=== PATIENT | female | born 1970 | race Caucasian/White ===

== ENCOUNTER → 2020-09-02 10:21 | Outpatient (CLI) | payer OTHER, SELFPAY ==
--- NOTE | ~2020-09-02 | MM_ITS ---
EXAMINATION: MM screening miranda BI w dee HISTORY: Screening TECHNIQUE: Craniocaudal and mediolateral oblique 3-D tomosynthesis images were obtained and synthetic 2-D images were generated. CAD analysis was submitted and interpreted. COMPARISON: Comparison to multiple prior studies sequentially, with oldest reviewed study dated 01/11. BREAST PARENCHYMAL COMPOSITION: There are scattered areas of fibroglandular density. FINDINGS: There is no evidence of suspicious mass, calcification, or architectural distortion to sugg est malignancy in either breast. There has been no suspicious interval change. IMPRESSION: 1. No mammographic evidence of malignancy. 2. Recommend routine screening mammography in one year. BI-RADS Category 1: Negative Reviewed, dictated and finalized at location A.
== END ==
PROVIDERS: PCP Family Medicine; Visit Provider Obstetrics & Gynecology Gynecology
DX: Z12.31 Encounter for screening mammogram for malignant neoplasm of breast (principal)
CPT/HCPCS: 77063; 77067

== ENCOUNTER → 2020-09-06 10:02 | Outpatient (CLI) | payer OTHER, SELFPAY ==
--- NOTE | ~2020-09-06 | US_ITS ---
US abdomen complete EXAMINATION: US Abdomen Complete INDICATION: Right upper quadrant pain PROCEDURE: Realtime High Resolution abdomen ultrasound. COMPARISON: No prior studies for comparison FINDINGS: Gallbladder is surgically absent. Common bile duct measures 3.6 mm. Liver echotexture within normal limits without focal mass. Pancreas within normal limits. Pancreati c tail is obscured by bowel gas. Spleen is unremarkeable. Renal echotexture is within normal limits bilaterally without hydronephrosis, contour deforming mass or renal stone. Right kidney measures 9 cm . Left kidney measures 11.4 cm. Visualized aspects of the IVC are within normal limits. Abdominal aorta not visualized due to bowel g as. Portal vein is patent. No sonographic Medina's sign indicated by the technologist. IMPRESSION: 1: Unremarkable abdominal ultrasound. Reviewed, dictated and finalized at location A.
== END ==
PROVIDERS: PCP Family Medicine; Visit Provider Physician Assistant
DX: R10.9 Unspecified abdominal pain (principal)
CPT/HCPCS: 76700

== ENCOUNTER 2021-03-27 01:45 | Day surgery (SDC) | payer OTHER, SELFPAY ==
[2021-03-10 14:14] VITALS: BMI 40.4
[2021-03-27 08:16] VITALS: BP 121/67; PULSE 79; RESP 18; TEMP 36.1; O2SAT 98
--- NOTE | 2021-03-27 08:40 | P.PNAN_ITS ---
Anes - Initial Pre Proc Eval Procedure: Operation Date: 03/27/21 09:00 Proposed Procedures p Screening Colonoscopy - Stevie Chandra MD Date/Time: 03/27/21 08:40 Surgeon: Stevie Chandra MD Pre Op Diagnosis: neoplasm screening Patient Data Age: 50 Gender: F Height: 1.68 m Weight: 112.9 kg Last Vital Signs Temp 36.1 C L 03/27/21 08:16 Pulse 79 03/27/21 08:16 Resp 18 03/27/21 08:16 BP 121/67 03/27/21 08:16 Pulse Ox 98 03/27/21 08:16 Allergies Allergy/AdvReac Type Severity Reaction Status Date / Time No Known Allergies Allergy Mild Verified 03/27/21 08:14 Home Medications Medication Instructions Recorded Confirmed Type nifedipine 60 mg tablet,extended 60 mg PO DAILY #90 tablet 01/13/21 03/10/21 Rx release 24 hr spironolactone 50 mg tablet See Rx Instructions .ROUTE 01/31/21 03/10/21 Rx .COMPLEX #90 tablet esomeprazole magnesium 40 mg 40 mg PO DAILY #90 cap 02/02/21 03/10/21 Rx capsule,delayed release ergocalciferol (vitamin D2) 50,000 unit PO WEEKLY 03/10/21 03/10/21 History medroxyprogesterone 150 mg IM MONTHLY 03/10/21 03/10/21 History Patient hx anesthesia problems: post op nausea/vomiting Family hx anesthesia problems: none Results Review: All pre-operative results and documents have been reviewed as part of the pre-operative evaluation. [facility]LY [facility] Past Medical History Medical History GERD (gastroesophageal reflux disease) Hyperlipidemia Hypertension Surgical History Surgical History History of cholecystectomy Social History Social History Smoking packs per day: 1 Smoking cigarettes per day: 20.0 Years smoked: 8 Smoking pack-years: 8.00 Smoking status: Never smoker Tobacco type: cigarettes Second hand tobacco smoke exposure: Yes Smoking end date: 06/17/98 Alcohol intake: current Drinks per week: 6 Substance use: never Substance use type: does not use Living arrangements: with family Gender identity (if verbalized by the patient): Female Spiritual care concerns: No Anes - Eval Final PreProcedure Day of Procedure 03/27/21 08:40 Patient weight: morbidly obese Heart: regular rate and rhythm Lungs: clear to auscultation Airway: Mallampati scale class II Neurological: alert and oriented Last oral intake: >/= 8 hours ASA classification: III Emergent: no Anesthetic plan: proceed Anesthesia type and monitoring: general GIVS and standard monitoring Results Review: All pre-operative results and documents have been reviewed as part of the pre-operative evaluation. Informed Consent: The patient's anesthetic plan and its attendant risks and benefits were discussed with the patient/family/POA. Questions were solicited and answers provided to the satisfaction of the patient/family/POA.
[2021-03-27] MEDS: LACTATED RINGERS 1,000 ML 150 ML IV CONT (08:41)
--- NOTE | 2021-03-27 08:47 | P.CONGI_ITS ---
Assessment and Plan Assessment and plan (1) Encounter for screening colonoscopy: Code(s): Z12.11 - Encounter for screening for malignant neoplasm of colon Status: Acute Assessment and Plan: Patient presents for screening colonoscopy. Appears be at average risk for colon polyps. Further recommendations will be given after a colonoscopy. GI Consult Note Consult date/time: 03/27/21 08:47 HPI: [place] is a 50 year old female Presents for screening colonoscopy. Patient's current weight appetite bowel movements are normal. She denies abdominal pain. She has had no bleeding. Family history is noncontributory. She presents today for screening colonoscopy. Review of Systems Review of Systems: All systems reviewed & are unremarkable except as noted in HPI and below PMFSH Past Medical History Medical History GERD (gastroesophageal reflux disease) Hyperlipidemia Hypertension Surgical History Surgical History History of cholecystectomy Social History Social History Smoking packs per day: 1 Smoking cigarettes per day: 20.0 Years smoked: 8 Smoking pack-years: 8.00 Smoking status: Never smoker Tobacco type: cigarettes Second hand tobacco smoke exposure: Yes Smoking end date: 06/17/98 Alcohol intake: current Drinks per week: 6 Substance use: never Substance use type: does not use Living arrangements: with family Gender identity (if verbalized by the patient): Female Spiritual care concerns: No Meds Home Medications and Allergies Home Medications Medication Instructions Recorded Confirmed Type nifedipine 60 mg tablet,extended 60 mg PO DAILY #90 tablet 01/13/21 03/10/21 Rx release 24 hr spironolactone 50 mg tablet See Rx Instructions .ROUTE 01/31/21 03/10/21 Rx .COMPLEX #90 tablet esomeprazole magnesium 40 mg 40 mg PO DAILY #90 cap 02/02/21 03/10/21 Rx capsule,delayed release ergocalciferol (vitamin D2) 50,000 unit PO WEEKLY 03/10/21 03/10/21 History medroxyprogesterone 150 mg IM MONTHLY 03/10/21 03/10/21 History Allergies Allergy/AdvReac Type Severity Reaction Status Date / Time No Known Allergies Allergy Mild Verified 03/27/21 08:14 Vital Signs Vital Signs - 24 hr 03/27/21 08:16 Temperature 96.9 F L Pulse Rate 79 Respiratory Rate 18 Blood Pressure 121/67 Pulse Oximetry 98 Exam Narrative: Physical exam reveals patient to be alert. Vital signs stable. HEENT exam is unremarkable. Patient is anicteric. Lungs are clear to au scultation and percussion. Heart is without murmur or extra sounds. Abdominal exam bowel sounds are present soft nontender with no organomegaly. Digital external rectal exam is normal.
[2021-03-27 09:09] VITALS: BP 121/83; PULSE 78; RESP 23; O2SAT 100
[2021-03-27 09:19] VITALS: BP 122/79; PULSE 77; RESP 20; O2SAT 100
[2021-03-27 09:29] VITALS: BP 116/78; PULSE 67; RESP 17; O2SAT 100
== END 2021-03-27 09:39 | disposition home or self-care (01) ==
PROVIDERS: PCP Family Medicine; Visit Provider Internal Medicine Gastroenterology
PROC: 0DJD8ZZ Inspection of Lower Intestinal Tract, Via Natural or Artificial Opening Endoscopic (ICD-10-PCS; CPT 45378; principal; 2021-03-27 09:00)
DX: Z12.11 Encounter for screening for malignant neoplasm of colon (principal); K64.8 Other hemorrhoids; K57.30 Diverticulosis of large intestine without perforation or abscess without bleeding; K63.5 Polyp of colon; K21.9 Gastro-esophageal reflux disease without esophagitis; I10 Essential (primary) hypertension; E78.5 Hyperlipidemia, unspecified; Z87.891 Personal history of nicotine dependence; E66.01 Morbid (severe) obesity due to excess calories; Z68.41 Body mass index [BMI] 40.0-44.9, adult
CPT/HCPCS: 45385; 88305; J2704; J7120

== ENCOUNTER → 2021-05-31 13:30 | Outpatient (CLI) | payer OTHER, SELFPAY ==
--- NOTE | ~2021-05-31 | CT_ITS ---
EXAMINATION: CT abdomen pelvis w con DATE: 05/31/2021 14:05 INDICATION: Upper quadrant pain. History of cholecystectomy. TECHNIQUE: Computed tomography (CT) of the abdomen and pelvis was performed with 100 cc Omnipaque 350 intravenous contrast. The dose-length product was 1062.50 mGy-cm. Automated exposure control and ite rative reconstruction technique were employed. COMPARISON: None. FINDINGS: Lung bases are unremarkable. Size is normal. No significant pleural or pericardial effusion . Small fat-containing umbilical hernia. Status post cholecystectomy. No significant vascular abnorma lity. Retroaortic left renal vein. No lymphadenopathy. The liver, spleen, pancreas, adrenal glands and kidneys are unremarkable. Nonobstructive bowel gas pa ttern. No free air or free fluid. Bowel pattern is nonobstructive. Moderate spondylosis at L5-S1. No acute bone or joint abnormality. IMPRESSION: 1. No acute abdominal abnormality. Reviewed, dictated and finalized at location A. [employer]
[2021-05-31 13:52] LABS: Estimated Glomerular Filt Rate > 60
== END ==
PROVIDERS: PCP Family Medicine; Visit Provider Physician Assistant
DX: R10.9 Unspecified abdominal pain (principal)
CPT/HCPCS: 74177; Q9967

== ENCOUNTER → 2021-10-27 09:58 | Outpatient (CLI) | payer OTHER, SELFPAY ==
--- NOTE | ~2021-10-27 | MM_ITS ---
EXAMINATION: MM screening miranda BI w dee HISTORY: Screening TECHNIQUE: Craniocaudal and mediolateral oblique 3-D tomosynthesis images were obtained and synthetic 2-D images were generated. CAD analysis was submitted and interpreted. COMPARISON: Comparison to multiple prior studies sequentially, with oldest reviewed study dated 08/2014. BREAST PARENCHYMAL COMPOSITION: The breasts are almost entirely fatty. FINDINGS: There is no evidence of suspicious mass, calcification, or architectural distortion to sugg est malignancy in either breast. There has been no suspicious interval change. IMPRESSION: 1. No mammographic evidence of malignancy. 2. Recommend routine screening mammography in one year. BI-RADS Category 1: Negative Reviewed, dictated and finalized at location A.
== END ==
PROVIDERS: PCP Family Medicine; Visit Provider Obstetrics & Gynecology Gynecology
DX: Z12.31 Encounter for screening mammogram for malignant neoplasm of breast (principal)
CPT/HCPCS: 77063; 77067

== ENCOUNTER 2022-11-11 09:13 | Emergency (ER) | payer OTHER, SELFPAY ==
[2022-11-11 09:24] VITALS: BP 107/83; PULSE 75; RESP 16; TEMP 36.3; O2SAT 100
--- NOTE | 2022-11-11 09:49 | ED.EAR ---
HPI - Ear Problem General Chief complaint: Ear Stated complaint: rt ear discomfort Time Seen by Provider: 11/11/22 09:49 Source: patient, RN notes reviewed and old records reviewed Mode of arrival: ambulatory Limitations: no limitations History of Present Illness HPI Narrative: 52 year old female who presents to [facility] care with complaints of bilateral ear pressure sensation with sensitivity to sound, sinus congestion and drainage, and cough that has been going on for 2 weeks. Patient reports that she has taken Sudafed and Claritin for her symptoms without resolution. Patient reports that she has sinus pressure with increased sinus congestion and drainage, and also frontal headache.Patient reports that she has not had any known fevers, chills or sweats or any body aches. MD Complaint: ear pain Location: bilateral Discharge from ear: Reports no Associated symptoms ear: other (pressure, sensitivity to sound) Treatment prior to arrival: other (Sudafed, Claritin) Related Data Home Medications Medication Instructions Recorded Confirmed ergocalciferol (vitamin D2) 1,250 50,000 unit PO WEEKLY 03/10/21 11/11/22 mcg (50,000 unit) capsule medroxyprogesterone 150 mg/mL 150 mg IM MONTHLY 03/10/21 11/11/22 intramuscular syringe mecobalamin (vitamin B12) 5,000 5,000 mcg PO DAILY 05/18/21 11/11/22 mcg lozenge Ca 600 mg-D3 20 mcg-mag oxide 50 1 tablet PO DAILY 05/24/22 11/11/22 zk-Ek-wvbqpi-manganese-boron tablet (Calcium 600-D3 Plus (mag-zinc)) Saccharomyces boulardii 250 mg 250 mg PO BID 05/24/22 11/11/22 capsule (Daily Probiotic (S. boulardii)) ascorbate calcium (vitamin C) 500 500 mg PO DAILY 05/24/22 11/11/22 mg tablet Allergies Allergy/AdvReac Type Severity Reaction Status Date / Time No Known Allergies Allergy Mild Verified 11/11/22 09:21 Review of Systems Review of Systems: CONSTITUTIONAL: Denies malaise, chills, sweats, or fever. EYES: Denies visual changes, redness, or discharge. ENT: Reports rhinorrhea, congestion, sinus pain, bilateral otalgia, sore throat. CARDIOVASCULAR: Denies chest pain, palpitations, or edema. RESPIRATORY: Reports cough.? Denies dyspnea. GASTROINTESTINAL: Denies abdominal pain, nausea, vomiting, diarrhea SKIN: Denies rash or itching. MUSCULOSKELETAL: Denies myalgia. NEUROLOGIC: Reports headache. All systems reviewed & are unremarkable except as noted in HPI and below PMFSH Past Medical History Medical History (Updated 11/11/22 @ 10:08 by Elis Lee NP) Encounter for screening colonoscopy (~03/2021) March, GERD (gastroesophageal reflux disease) Hyperlipidemia Hypertension Surgical History Surgical History History of cholecystectomy Social History Social History (Updated 05/24/22 @ 14:11 by Edel Duran PA-C) Smoking packs per day: 1 Smoking cigarettes per day: 20.0 Years smoked: 8 Smoking pack-years: 8.00 Smoking status: Former smoker Tobacco type: cigarettes Second hand tobacco smoke exposure: Yes Smoking end date: 06/17/98 Alcohol intake: current Drinks per week: 6 Substance use: never Substance use type: does not use Lack of Transportation: No Lack of Food: Never True Current Housing: I Have Housing Concerned About Future Housing: No Difficulty Paying Gas/Electric Bills: No Difficulty Paying for Meds: No Currently Unemployed: No Education: Bachelor's Degree Difficulty w/ Childcare or Family Care: No Living arrangements: with family Occupation/Education: occupation Gender identity (if verbalized by the patient): Female Spiritual care concerns: No Comments At time of signature, agree with nursing past medical, surgical, social and family history. There is no relevant family history pertinent to the presenting complaint Exam Narrative: GENERAL: Well-appearing, well-nourished, and in no acute distr
== END 2022-11-11 10:15 | disposition home or self-care (01) ==
PROVIDERS: Emergency Provider Registered Nurse; PCP Family Medicine
DX: J01.40 Acute pansinusitis, unspecified (principal); Z87.891 Personal history of nicotine dependence; K21.9 Gastro-esophageal reflux disease without esophagitis; E78.5 Hyperlipidemia, unspecified; I10 Essential (primary) hypertension
CPT/HCPCS: 87880; 99213; G0463

== ENCOUNTER → 2023-01-14 11:22 | Outpatient (CLI) | payer OTHER, SELFPAY ==
--- NOTE | ~2023-01-14 | MM_ITS ---
EXAMINATION: MM screening miranda BI w dee HISTORY: Screening mammogram TECHNIQUE: Craniocaudal and mediolateral oblique 3-D tomosynthesis images were obtained and synthetic 2-D images were generated. CAD analysis was submitted and interpreted. COMPARISON: 10/27/2021, 09/02/2020, 07/13/2019 bilateral screening mammogram examinations BREAST PARENCHYMAL COMPOSITION: The breasts are almost entirely fatty. FINDINGS: There is no evidence of suspicious mass, calcification, or architectural distortion to sugg est malignancy in either breast. There has been no suspicious interval change. IMPRESSION: 1. No mammographic evidence of malignancy. 2. Recommend routine screening mammography in one year. BI-RADS Category 1: Negative Reviewed, dictated and finalized at location A.
== END ==
PROVIDERS: PCP Family Medicine; Visit Provider Obstetrics & Gynecology Gynecology
DX: Z12.31 Encounter for screening mammogram for malignant neoplasm of breast (principal)
CPT/HCPCS: 77063; 77067

== ENCOUNTER 2023-09-20 08:09 | Emergency (ER) | payer OTHER, SELFPAY ==
--- NOTE | 2023-09-20 08:16 | ED.EYEPROB ---
HPI - Eye Problem General Chief complaint: Eye Problems Stated complaint: [facility] Time Seen by Provider: 09/20/23 08:16 Source: patient, RN notes reviewed and old records reviewed Mode of arrival: ambulatory Limitations: no limitations History of Present Illness HPI Narrative: 52-year-old female to [facility] for complaint of right eye irritation, swelling and redness for 2 days and left eye irritation that began yesterday. Patient endorses popping sound to right ear that began yesterday. Patient denies fevers, headache, visual changes, sore throat. Related Data Home Medications Medication Instructions Recorded Confirmed ergocalciferol (vitamin D2) 1,250 50,000 unit PO WEEKLY 03/10/21 09/20/23 mcg (50,000 unit) capsule medroxyprogesterone 150 mg/mL 150 mg IM MONTHLY 03/10/21 09/20/23 intramuscular syringe mecobalamin (vitamin B12) 5,000 5,000 mcg PO DAILY 05/18/21 09/20/23 mcg lozenge Ca 600 mg-D3 20 mcg-mag oxide 50 1 tablet PO DAILY 05/24/22 09/20/23 ke-Kq-hmwnll-manganese-boron tablet (Calcium 600-D3 Plus (mag-zinc)) Saccharomyces boulardii 250 mg 250 mg PO BID 05/24/22 09/20/23 capsule (Daily Probiotic (S. boulardii)) ascorbate calcium (vitamin C) 500 500 mg PO DAILY 05/24/22 09/20/23 mg tablet esomeprazole magnesium 20 mg 20 mg PO DAILY 09/20/23 09/20/23 capsule,delayed release (Nexium) Allergies Allergy/AdvReac Type Severity Reaction Status Date / Time No Known Allergies Allergy Mild Verified 09/20/23 08:16 Review of Systems Review of Systems: All systems reviewed & are unremarkable except as noted in HPI and below Constitutional: Constitutional: Reports no additional constitutional complaints Eyes: Eyes: Reports as per HPI, Denies blurry vision, Denies change in vision, Reports eye discharge, Reports irritation, Denies loss of vision and Denies other visual disturbances ENT: Reports as per HPI and Reports otalgia (right) Cardiovascular: Cardiovascular: Reports no additional cardiovascular complaints, Denies chest pain and Denies dyspnea Respiratory: Respiratory: Reports no additional respiratory complaints, Denies cough and Denies dyspnea Musculoskeletal: Musculoskeletal: Reports no additional musculoskeletal complaints Neurologic: Reports system reviewed and no additional complaints, except as documented Psychiatric: Psychiatric: Reports no additional psychiatric complaints [facility] Past Medical History Medical History Encounter for screening colonoscopy (~03/2021) March, GERD (gastroesophageal reflux disease) Hyperlipidemia Hypertension Surgical History Surgical History History of cholecystectomy Social History Social History Smoking packs per day: 1 Smoking cigarettes per day: 20.0 Years smoked: 8 Smoking pack-years: 8.00 Smoking status: Former smoker Tobacco type: cigarettes Second hand tobacco smoke exposure: Yes Smoking end date: 06/17/98 Alcohol intake: current Drinks per week: 6 Substance use: never Substance use type: does not use Lack of Transportation: No Lack of Food: Never True Current Housing: I Have Housing Concerned About Future Housing: No Difficulty Paying Gas/Electric Bills: No Difficulty Paying for Meds: No Currently Unemployed: No Education: Bachelor's Degree Difficulty w/ Childcare or Family Care: No Living arrangements: with family Occupation/Education: occupation Gender identity (if verbalized by the patient): Female Spiritual care concerns: No Comments At the time of my signature, I reviewed and agree with the nursing past medical, surgical, social, and family history. There is no relevant family history pertinent to the patient complaint. Exam Const: General: cooperative, healthy ap
[2023-09-20 08:20] VITALS: BP 130/87; PULSE 88; RESP 16; TEMP 36.6; O2SAT 100
== END 2023-09-20 08:35 | disposition home or self-care (01) ==
PROVIDERS: Emergency Provider Nurse Practitioner Family; PCP Family Medicine
DX: H10.33 Unspecified acute conjunctivitis, bilateral (principal); Z87.891 Personal history of nicotine dependence; K21.9 Gastro-esophageal reflux disease without esophagitis; E78.5 Hyperlipidemia, unspecified; I10 Essential (primary) hypertension
CPT/HCPCS: 99213; G0463

== ENCOUNTER 2023-12-23 10:06 | Emergency (ER) | payer OTHER, SELFPAY ==
--- NOTE | 2023-12-23 10:11 | ED.URI ---
HPI - URI/Sore Throat General Chief Complaint: Upper Respiratory Infection Stated Complaint: Sore Throat/Ear Pain/Headache Time Seen by Provider: 12/23/23 10:22 Source: patient and RN notes reviewed Mode of arrival: ambulatory Limitations: no limitations History of Present Illness HPI Narrative: 53-year-old female presents with concern for sore throat, ears clogged, head congestion, headache. She denies fever, body aches, chills, sweats. She has tried a couple [id number]-skxqsjp medications without relief. She reports seeing a white spot on her tonsil. MD elicited complaint: sore throat Related Data Home Medications Medication Instructions Recorded Confirmed ergocalciferol (vitamin D2) 1,250 50,000 unit PO WEEKLY 03/10/21 12/23/23 mcg (50,000 unit) capsule medroxyprogesterone 150 mg/mL 150 mg IM MONTHLY 03/10/21 12/23/23 intramuscular syringe mecobalamin (vitamin B12) 5,000 5,000 mcg PO DAILY 05/18/21 12/23/23 mcg lozenge Ca 600 mg-D3 20 mcg-mag oxide 50 1 tablet PO DAILY 05/24/22 12/23/23 sc-Bf-zoozpc-manganese-boron tablet (Calcium 600-D3 Plus (mag-zinc)) Saccharomyces boulardii 250 mg 250 mg PO BID 05/24/22 12/23/23 capsule (Daily Probiotic (S. boulardii)) ascorbate calcium (vitamin C) 500 500 mg PO DAILY 05/24/22 12/23/23 mg tablet psyllium husk 0.4 gram capsule 0.4 g PO DAILY 12/23/23 12/23/23 (Metamucil) Allergies Allergy/AdvReac Type Severity Reaction Status Date / Time No Known Allergies Allergy Mild Verified 12/23/23 10:11 Review of Systems Review of Systems: CONSTITUTIONAL: Denies malaise, chills, sweats, or fever. EYES: Denies visual changes, redness, or discharge. ENT: Reports rhinorrhea, congestion, otalgia and sore throat. CARDIOVASCULAR: Denies chest pain, palpitations, or edema. RESPIRATORY: Denies cough. Denies dyspnea. GASTROINTESTINAL: Denies abdominal pain, nausea, vomiting, diarrhea SKIN: Denies rash or itching. MUSCULOSKELETAL: Denies myalgia. NEUROLOGIC: Reports headache. All systems reviewed & are unremarkable except as noted in HPI and below PMFSH Past Medical History Medical History Encounter for screening colonoscopy (~03/2021) March, GERD (gastroesophageal reflux disease) Hyperlipidemia Hypertension Surgical History Surgical History History of cholecystectomy Social History Social History Smoking packs per day: 1 Smoking cigarettes per day: 20.0 Years smoked: 8 Smoking pack-years: 8.00 Smoking status: Former smoker Tobacco type: cigarettes Second hand tobacco smoke exposure: Yes Smoking end date: 06/17/98 Alcohol intake: current Drinks per week: 6 Substance use: never Substance use type: does not use Lack of Transportation: No Lack of Food: Never True Current Housing: I Have Housing Concerned About Future Housing: No Difficulty Paying Gas/Electric Bills: No Difficulty Paying for Meds: No Currently Unemployed: No Education: Bachelor's Degree Difficulty w/ Childcare or Family Care: No Living arrangements: with family Occupation/Education: occupation Gender identity (if verbalized by the patient): Female Spiritual care concerns: No Comments At time of signature, agree with nursing past medical, surgical, social and family history. There is no relevant family history pertinent to the presenting complaint Exam Narrative: GENERAL: Well-appearing, well-nourished, and in no acute distress. HEAD: Normocephalic EYES: PERRLA, conjunctivae clear ENT: Nares clear. Mucous membranes moist. TM pearly olguin with dull light reflex bilaterally; no tragal tenderness. Oropharynx not erythematous without lesions. Left tonsils enlarged and without exudate, no drooling, no hoarseness, no trismus, uvula midline. NECK:
[2023-12-23 10:17] VITALS: BP 127/85; PULSE 93; RESP 15; TEMP 36.6; O2SAT 99
[2023-12-23 10:27] LABS: EDSTREPNEGPOS1 Presumptive Negative
== END 2023-12-23 10:38 | disposition home or self-care (01) ==
PROVIDERS: Emergency Provider Nurse Practitioner; PCP Family Medicine
DX: J02.9 Acute pharyngitis, unspecified (principal); Z87.891 Personal history of nicotine dependence; K21.9 Gastro-esophageal reflux disease without esophagitis; E78.5 Hyperlipidemia, unspecified; I10 Essential (primary) hypertension
CPT/HCPCS: 87081; 87880; 99213; G0463

== ENCOUNTER 2024-02-21 10:23 | Outpatient (CLI) | payer OTHER, SELFPAY ==
--- NOTE | ~2024-02-21 | MM_ITS ---
EXAMINATION: MM screening miranda BI w dee HISTORY: Screening TECHNIQUE: Craniocaudal and mediolateral oblique 3-D tomosynthesis images were obtained and synthetic 2-D images were generated. CAD analysis was submitted and interpreted. COMPARISON: Comparison to multiple prior studies sequentially, with oldest reviewed study dated 06/2016. BREAST PARENCHYMAL COMPOSITION: Not Dense. The breasts are almost entirely fatty. FINDINGS: There is no evidence of suspicious mass, calcification, or architectural distortion to sugg est malignancy in either breast. There has been no suspicious interval change. IMPRESSION: 1. No mammographic evidence of malignancy. 2. Recommend routine screening mammography in one year. BI-RADS Category 1: Negative Reviewed, dictated and finalized at location B.
== END 2024-02-21 10:24 | disposition home or self-care (01) ==
LOC: MICIMG 10:24
PROVIDERS: PCP Family Medicine; Visit Provider Obstetrics & Gynecology Gynecology
DX: Z12.31 Encounter for screening mammogram for malignant neoplasm of breast (principal)
CPT/HCPCS: 77063; 77067

== ENCOUNTER 2025-02-23 10:38 | Outpatient (CLI) | payer OTHER, SELFPAY ==
--- NOTE | ~2025-02-23 | MM_ITS ---
EXAMINATION: MM screening miranda BI w dee HISTORY: Screening TECHNIQUE: Craniocaudal and mediolateral oblique 3-D tomosynthesis images were obtained and synthetic 2-D images were generated. CAD analysis was submitted and interpreted. COMPARISON: Comparison to multiple prior studies sequentially, with oldest reviewed study dated , 05/23/2018 BREAST PARENCHYMAL COMPOSITION: The breasts are almost entirely fatty. FINDINGS: There is no evidence of suspicious mass, calcification, or architectural distortion to suggest malignancy in either breast. IMPRESSION: 1. No mammographic evidence of malignancy. 2. Recommend routine screening mammography in one year. BI-RADS Category 1: Negative Reviewed, dictated and finalized at location B.
== END 2025-02-23 10:39 | disposition home or self-care (01) ==
LOC: MICIMG 10:39
PROVIDERS: PCP Family Medicine; Visit Provider Obstetrics & Gynecology Gynecology
DX: Z12.31 Encounter for screening mammogram for malignant neoplasm of breast (principal)
CPT/HCPCS: 77063; 77067